=== PATIENT | male | born 1955 | race African-American/Black ===

== ENCOUNTER 2017-05-18 08:04 | Emergency (ER) | payer MEDICAID ==
[2016-08-10 07:49] VITALS: BMI 29.6
[~2017-05-18 08:04] MED LIST: COREG6.25 MG PO; KLONOPIN1 MG PO; KLOR-CON 1010 MEQ PO; LASIX INJ40 MG/4 ML PO; LASIX40 MG PO; XANAX1 MG PO; ZYPREXA15 MG PO
[2017-05-18 08:29] LABS: BASOPHILS 0.5 % (0-2); EOSINOPHILS 2.4 % (0-7); HEMATOCRIT 27.9 % (42.0-54.0); HEMOGLOBIN 8.6 g/dL (13.5-17.5); IMMATURE GRANULOCYTES 0.2 % (0-5); LYMPHOCYTES 24.3 % (15-50); MCH 25.4 pg (26.0-34.0); MCHC 30.8 g/dL (31.0-37.0); MCV 82.5 fL (80.0-100.0); MEAN PLATELET VOLUME 8.8 fL (7.4-10.4); NEUTROPHILS 64.6 % (40-80); PLATELET COUNT 258 10x3/uL (130-400); RBC 3.38 10x6/uL (4.20-6.10); RDW 18.1 % (11.5-14.5); WBC 5.5 10x3/uL (4.8-10.8)
[2017-05-18 08:59] LABS: ALBUMIN 3.4 g/dL (3.4-5.0); ANION GAP 15.7 mmol/L (8-16); BILIRUBIN - TOTAL 1.58 mg/dL (0.2-1.3); CALCIUM 8.8 mg/dL (8.5-10.1); CARBON DIOXIDE 20.8 mmol/L (21.0-32.0); CREATININE - SERUM 2.2 mg/dL (0.6-1.3); POTASSIUM - SERUM 4.5 mmol/L (3.5-5.1); PROTEIN - SERUM 8.8 g/dL (6.4-8.2)
[2017-05-18 09:14] LABS: TROPONIN-I 0.06 ng/mL (0.000-0.060)
== END 2017-05-18 11:48 | disposition home or self-care (01) ==
LOC: D.ER 08:04
PROVIDERS: Emergency Medicine
DX: I50.9 Heart failure, unspecified (principal); I10 Essential (primary) hypertension

== ENCOUNTER 2017-08-02 12:56 | Emergency (ER) | payer MEDICAID ==
[2016-08-10 07:49] VITALS: BMI 29.6
[2017-08-02 13:41] LABS: BASOPHILS 0.4 % (0-2); EOSINOPHILS 5.2 % (0-7); HEMATOCRIT 28.3 % (42.0-54.0); HEMOGLOBIN 8.7 g/dL (13.5-17.5); IMMATURE GRANULOCYTES 0.4 % (0-5); LYMPHOCYTES 20.7 % (15-50); MCH 24.2 pg (26.0-34.0); MCHC 30.7 g/dL (31.0-37.0); MCV 78.8 fL (80.0-100.0); MEAN PLATELET VOLUME 8.7 fL (7.4-10.4); MONOCYTES 6.6 % (2-11); NEUTROPHILS 66.7 % (40-80); PLATELET COUNT 257 10x3/uL (130-400); RBC 3.59 10x6/uL (4.20-6.10); RDW 20.1 % (11.5-14.5)
[2017-08-02 13:54] LABS: ALBUMIN 3.2 g/dL (3.4-5.0); ALKALINE PHOSPHATASE 90 U/L (46-116); ALT (SGPT) 20 U/L (10-68); BILIRUBIN - TOTAL 0.69 mg/dL (0.2-1.3); CALC OSMOLALITY 273 mosm/kg (275-300); CALCIUM 8.4 mg/dL (8.5-10.1); CARBON DIOXIDE 22.4 mmol/L (21.0-32.0); CHLORIDE - SERUM 107 mmol/L (98-107); CREATININE - SERUM 2.4 mg/dL (0.6-1.3); GLUCOSE 93 mg/dL (74-106); POTASSIUM - SERUM 4.3 mmol/L (3.5-5.1); PROTEIN - SERUM 7.7 g/dL (6.4-8.2); SODIUM 135 mmol/L (136-145); UREA NITROGEN 24 mg/dL (7-18); eGFR NON AFRICAN AMERICAN 29 mL/min (90-120)
[2017-08-02 14:14] LABS: CREATINE KINASE 268 UL (21-232); PRO BNP 5191 pg/mL (0-125)
[2017-08-02 15:05] LABS: CKMB 3.6 U/L (0.0-3.6)
== END 2017-08-02 16:42 | disposition home or self-care (01) ==
LOC: D.ER 12:56
PROVIDERS: Emergency Medicine
DX: I50.9 Heart failure, unspecified (principal); D64.9 Anemia, unspecified; I10 Essential (primary) hypertension